=== PATIENT | male | born 1960 | race Caucasian/White ===

== ENCOUNTER 2021-01-27 18:10 | Emergency (ER) | payer BC, SELFPAY ==
[2021-01-27 18:12] VITALS: BP 120/66; PULSE 84; RESP 18; TEMP 36.7; O2SAT 99
--- NOTE | 2021-01-27 18:46 | DI.US.S_ITS ---
PROCEDURE: US RENAL COMPLETE INDICATIONS: MID BACK PAIN - RULE OUT GALLBLADDER AND RENAL PATHOLOGY TECHNIQUE: Real-time scanning was performed of the kidneys and bladder, with image documentation. COMPARISON: None. FINDINGS: Kidneys: Kidneys are normal in size. Right kidney measures 11.3 cm long; left kidney measures 10.6 cm long. Right renal cortical thickness is 1.7 cm; left renal cortical thickness is 2.2 cm. Renal cortical echotexture is normal. No hydronephrosis or nephrolithiasis. No suspicious solid mass lesions. Bladder: Not evaluated, per ER physician instruction Miscellaneous: No free pelvic fluid. Gallbladder also evaluated as per ER physician request. No gallstones or gallbladder wall thickening. No fluid around the gallbladder. No dilated ducts. IMPRESSION: Unremarkable renal ultrasound. No renal stone or hydronephrosis seen. Unremarkable gallbladder. Comment: Preliminary findings were reported by the missionary coordinator to the referring provider at the time of study completion. Dictated by: Alejandro Ibrahim M.D. on 01/27/2021 at 20:26 Approved by: Alejandro Ibrahim M.D. on 01/27/2021 at 20:28
[2021-01-27 18:47] LABS: Add Manual Diff / Slide Review NO; Basophils Absolute Auto 100 /uL (0-100); Basophils Percent Auto 0.8 % (0-2); Eosinophils Absolute Auto 200 /uL (0-450); Eosinophils Percent Auto 3.1 % (2-4); Hematocrit 44.8 % (41-53); Hemoglobin 15.5 g/dL (13.5-17.5); Lymphocytes Absolute Auto 1600 /uL (1100-4500); Lymphocytes Percent Auto 22.3 % (25-40); Mean Corpuscular HGB Conc 34.7 % (30-36); Mean Corpuscular Hemoglobin 31.8 PG (26-34); Mean Corpuscular Volume 91.9 fL (80-100); Monocytes Absolute Auto 700 /uL (0-900); Monocytes Percent Auto 9.3 % (3-14); Neutrophils Absolute Auto 4600 /uL (1500-7000); Neutrophils Percent Auto 64.5 % (50-75); Platelet Count 162 X10^3/uL (150-400); Red Blood Cell Count 4.88 X10^6/uL (4.5-5.9); Red Cell Distribution Width 12.5 % (11.6-14.8); White Blood Cell Count 7.1 X10^3/uL (4.5-11.0)
[2021-01-27 19:00] LABS: INR 1.2 (0.9-1.3); Prothrombin Time 13.5 SECONDS (10.1-12.7)
[2021-01-27 19:03] LABS: PTT Partial Thromboplastin Tim 36 SECONDS (26.4-36.2)
[2021-01-27 19:04] LABS: Alanine Aminotransferase 34 IU/L (<50); Albumin 4.7 g/dL (3.5-5.0); Albumin Globulin Ratio 1.6 (1.0-2.8); Alkaline Phosphatase 50 U/L (38-126); Aspartate Aminotransferase 36 IU/L (17-59); BUN Creatinine Ratio 19.8 (6-22); Bilirubin Total 0.5 mg/dL (0.2-1.3); Blood Urea Nitrogen 20 mg/dL (9-20); Calcium 10.1 mg/dL (8.4-10.2); Carbon Dioxide 27 mmol/L (22-32); Chloride 100 mmol/L (98-107); Estimated Glomerular Filt Rate > 60.0 mL/min (>60); Globulin 2.9 g/dL (1.7-4.1); Glucose 110 mg/dL (80-110); HEMOLYSIS 19 (0-50); Lipase 67 U/L (23-300); Potassium 3.7 mmol/L (3.4-5.1); Sodium 137 mmol/L (137-145); Total Protein 7.6 g/dL (6.3-8.2)
--- NOTE | 2021-01-27 19:09 | ED.GENADULT ---
HPI - General Adult General Chief complaint: Abdominal Pain Stated complaint: flank pain, right side Time Seen by Provider: 01/27/21 19:08 Source: patient Mode of arrival: Ambulatory Limitations: no limitations History of Present Illness HPI narrative: Patient is a 60-year-old male who was sent from his primary doctor's office for evaluation of right-sided flank pain. He states that it has been going on for the past 48 hours. Does not seem to get worse with movement. Not worse with urination or bowel movements. Not worse with eating. Potentially somewhat worse with lying down. No fevers. States that touching the area does not make it worse. He states he did not have any blood in his urine when he was seen at his primary doctor's office and was sent to the emergency department for further evaluation. Related Data Previous Rx's Medication Instructions Recorded acyclovir 800 mg PO 5XD 7 Days #35 tab 01/27/21 hydrocodone-acetaminophen 1 tab PO Q4-6H PRN #7 tab 01/27/21 prednisone 20 mg PO DAILY 6 Days #6 tab 01/27/21 Allergies Allergy/AdvReac Type Severity Reaction Status Date / Time No Known Drug Allergies Allergy Verified 01/27/21 18:17 Review of Systems Constitutional Constitutional: Denies fever(s) Cardiovascular Cardiovascular: Denies chest pain and Denies dyspnea Respiratory Respiratory: Denies cough and Denies dyspnea Gastrointestinal Gastrointestinal: Denies abdominal pain, Denies change in bowel habits, Denies nausea and Denies vomiting Genitourinary Genitourinary: Denies dysuria Genitourinary: Denies dysuria Musculoskeletal Musculoskeletal: Reports back pain Integumentary/Breasts Skin/Breast: Denies lesions and Denies rash Neurologic Neurologic: Denies behavioral changes Psychiatric Psychiatric: Denies behavioral changes Hematologic/Lymphatic On Anticoagulants: No Allergic/Immunologic Allergic/Immunologic: Denies urticaria Patient History Medical History Healthy adult Social History Smoking Status: Former smoker Smoking Status: Former smoker alcohol intake frequency: 0-2 drinks per day Substance Use Type: marijuana Exam Initial Vital Signs Initial Vital Signs: Vital Signs Temperature 98.0 F 01/27/21 18:12 Pulse Rate 84 01/27/21 18:12 Respiratory Rate 18 01/27/21 18:12 Blood Pressure 120/66 01/27/21 18:12 Pulse Oximetry 99 01/27/21 18:12 Const General: cooperative, healthy appearing and comfortable Limitations: mental status not altered HENMT Head: normal to inspection and normocephalic Resp Effort & Inspection: normal respiratory effort Auscultation: clear to auscultation bilaterally Cardio Rate: regular rate Rhythm: regular rhythm GI Inspection: non-distended Palpation: soft and No tender Back/Spine/Pelvis Back: erythema Thoracic/Lumbar Spine: No thoracic spinal tenderness and No lumbar spinal tenderness Skin Other: Patient with a rash located on the right side approximately where he is having the discomfort that does not cross midline. Has grouped vesicles with some surrounding erythema. Does not cross midline. Neuro General: patient alert and patient awake Cognition: normal cognition Extrem General: capillary refill normal Psych Appearance: grossly normal and well kempt Course Orders Ordered: ED Orders 01/27/21 18:38 Complete Blood Count AUTO DIFF Stat Comprehensive Metabolic Panel Stat Lipase Stat Partial Thromboplastin Time Stat Prothrombin Time INR Stat 01/27/21 18:46 US renal complete Stat Discontinued Medications Hydrocodone Bitart/Acetaminophen (Hydrocodone/Acet 5/325 Prepack) 1 bottle MISC SEEINSTR ONE Stop: 01/27/21 20:55 Acyclovir (Acyclovir 200 Mg Capsule) 800 mg PO NOW ONE Stop: 01/27/21 20:55 Last Admin: 01/27/21 21:05 Dose: 800 mg Documented by: HENRI Prednisone (Prednisone 20 Mg Tablet) 20 mg PO NOW ONE Stop: 01/27/21 20:55 Last Admin: 01/27/21 21:04 Dose: 20 mg Documented by: HENRI Vital Signs Vital signs: Vital Signs - 8 hr 01/27/21 18:12 01/27/21 20:16 01/27/21 20:18 Temperature 98.0 F Pulse Rate 84 85 Respiratory Rate 18 Blood Pressure 120/66 163/95 H Pulse Oximetry 99 89 L 98 01/27/21 20:24 01/27/21 20:30 01/27/21 21:00 Temperature Pulse Rate 94 H 89 84 Respiratory Rate 16 18 16 Blood Pressure 139/80 137/79 136/77 Pulse Oximetry 97 97 97 Medical Decision Making Lab Data Lab results reviewed: Yes I reviewed the patient's lab results. Result diagrams: 01/27/21 18:38 01/27/21 18:38 Labs: Lab Results 01/27/21 01/27/21 01/27/21 Range/Units 18:38 18:38 18:38 WBC 7.1 (4.5-11.0) X10^3/uL RBC 4.88 (4.5-5.9) X10^6/uL Hgb 15.5 (13.5-17.5) g/dL Hct 44.8 (41-53) % MCV 91.9 (80-100) fL MCH 31.8 (26-34) PG MCHC 34.7 (30-36) % RDW 12.5 (11.6-14.8) % Plt Count 162 (150-400) X10^3/uL Neut % (Auto) 64.5 (50-75) % Lymph % (Auto) 22.3 L (25-40) % [place] % (Auto) 9.3 (3-14) % Eos % (Auto) 3.1 (2-4) % Baso % (Auto) 0.8 (0-2) % Neut # (Auto) 4600 (5677-9594) /uL Lymph # (Auto) 1600 (9651-3511) /uL [place] # (Auto) 700 (0-900) /uL Eos # (Auto) 200 (0-450) /uL Baso # (Auto) 100 (0-100) /uL PT 13.5 H (10.1-12.7) SECONDS INR 1.2 (0.9-1.3) APTT 36 (26.4-36.2) SECONDS Sodium 137 (137-145) mmol/L Potassium 3.7 (3.4-5.1) mmol/L Chloride 100 (98-107) mmol/L Carbon Dioxide 27 (22-32) mmol/L BUN 20 (9-20) mg/dL Creatinine 1.01 (0.66-1.25) mg/dL Estimated GFR > 60.0 (>60) mL/min BUN/Creatinine Ratio 19.8 (6-22) Glucose 110 (80-110) mg/dL Calcium 10.1 (8.4-10.2) mg/dL Total Bilirubin 0.5 (0.2-1.3) mg/dL AST 36 (17-59) IU/L ALT 34 (<50) IU/L Alkaline Phosphatase 50 (38-126) U/L Total Protein 7.6 (6.3-8.2) g/dL Albumin 4.7 (3.5-5.0) g/dL Globulin 2.9 (1.7-4.1) g/dL Albumin/Globulin Ratio 1.6 (1.0-2.8) Lipase 67 (23-300) U/L Urine Dip Bedside Urine Glucose Negative Bedside Urine Bilirubin - Negative Bedside Urine Ketone - Negative Urine Specific [place] 1.025 Bedside Urine Occult Blood - Negative Bedside Urine pH 6.0 Bedside Urine Protein - Negative Bedside Urine Urobilinogen - Negative Bedside Urine Nitrite - Negative Bedside Urine Leukocytes - Negative Esterase Point of care testing: Urine Dip Bedside Urine Glucose Negative Bedside Urine Bilirubin - Negative Bedside Urine Ketone - Negative Urine Specific [place] 1.025 Bedside Urine Occult Blood - Negative Bedside Urine pH 6.0 Bedside Urine Protein - Negative Bedside Urine Urobilinogen - Negative Bedside Urine Nitrite - Negative Bedside Urine Leukocytes - Negative Esterase Imaging Data US - abdomen: Radiologist's Impression: [address] [id number] ReportSigned Patient: Juan Antonio ParedesMR#: [id number]: [id number]:[id number]/Sex: 60 / MDate of Service: 01/27/21Loc: EDAccession Number: [id number] Procedure: US renal complete Ordering Provider: Amos Mena PROCEDURE: US RENAL COMPLETE INDICATIONS: MID BACK PAIN - RULE OUT GALLBLADDER AND RENAL PATHOLOGY TECHNIQUE: Real-time scanning was performed of the kidneys and bladder, with image documentation. COMPARISON: None. FINDINGS: Kidneys: Kidneys are normal in size. Right kidney measures 11.3 cm long; left kidney measures 10.6 cm long. Right renal cortical thickness is 1.7 cm; left renal cortical thickness is 2.2 cm. Renal cortical echotexture is normal. No hydronephrosis or nephrolithiasis. No suspicious solid mass lesions. Bladder: Not evaluated, per ER physician instruction Miscellaneous: No free pelvic fluid. Gallbladder also evaluated as per ER physician request. No gallstones or gallbladder wall thickening. No fluid around the gallbladder. No dilated ducts. IMPRESSION: Unremarkable renal ultrasound. No renal stone or hydronephrosis seen. Unremarkable gallbladder. Comment: Preliminary findings were reported by the cancer genetic counselor to the referring provider at the time of study completion. Dictated by: Alejandro Ibrahim M.D. on 01/27/2021 at 20:26 Approved by: Alejandro Ibrahim M.D. on 01/27/2021 at 20:28 MDM Narrative Medical decision making narrative: His labs are unremarkable and his ultrasound is unremarkable. Has a rash on his right flank that is very consistent with a zoster type rash. He states his primary doctor did not look at his back prior to being sent to the emergency department. There appears to be very small vesicles that are grouped together however I do not feel that it would be amendable to culture. Given his presentation and his labs and his ultrasound I feel that this is the cause of his discomfort. He was given steroids and acyclovir here in the ER. Was given a prescription for the remainder the course into the pharmacy of his choice. He was given return precautions and follow-up instructions. The symptoms have been going on for less than 48 hours he expressed understanding agreement. Discharge Plan Departure Patient Disposition: Home Clinical Impression: Herpes zoster Instructions: DI for Shingles Activity Restrictions/Additional Instructions: You were given your 1st dose of medication here in the emergency department. The remainder of the course were electronically transmitted to [facility]. Take it as directed. Contact your primary provider for a follow-up. Return to the emergency department for any new or worsening symptoms Prescriptions: New hydrocodone-acetaminophen 5-325 mg tablet 1 tab PO Q4-6H PRN (Reason: pain) Qty: 7 RF: 0 acyclovir 800 mg tablet 800 mg PO 5XD 7 Days Qty: 35 RF: 0 prednisone 20 mg tablet 20 mg PO DAILY 6 Days Qty: 6 RF: 0
[2021-01-27 20:16] VITALS: O2SAT 89
[2021-01-27 20:18] VITALS: BP 163/95; PULSE 85; O2SAT 98
[2021-01-27 20:24] VITALS: BP 139/80; PULSE 94; RESP 16; O2SAT 97
[2021-01-27 20:30] VITALS: BP 137/79; PULSE 89; RESP 18; O2SAT 97
[2021-01-27 21:00] VITALS: BP 136/77; PULSE 84; RESP 16; O2SAT 97
[2021-01-27] MEDS: predniSONE 20 MG TABLET PO (21:04)
[2021-01-27] MEDS: ACYCLOVIR 200 MG CAPSULE 800 MG PO (21:05)
== END 2021-01-27 21:19 | disposition home or self-care (01) ==
PROVIDERS: Emergency Provider Emergency Medicine
DX: B02.8 Zoster with other complications (principal); R10.9 Unspecified abdominal pain
CPT/HCPCS: 36415; 76770; 80053; 81003; 83690; 85025; 85610; 85730; 99283; 99284